=== PATIENT | male | born 1930 | race Caucasian/White ===

== ENCOUNTER → 2016-06-09 | Outpatient (CLI) | payer BC ==
[~2016-06-09] MED LIST: ALBUAER2 INH; ASPCH81 PO; AVD5 PO; AZLCR30 TOP; CHOL100010 PO; LISI-787 PO; MULT-506 PO; PARO1TAB27 PO; SIMV5TAB2 PO
--- NOTE | 2016-06-09 20:50 | DIAGNOSTIC IMAGING REPORT ---
CHEST 2 VIEWS ROUTINE CLINICAL HISTORY: UNSPECIFIED ASTHMA PT TO MAIN LAB NEXT dyspnea COMPARISON STUDY: 12/26/2013 FINDINGS: Subtle interstitial infiltrate left base. Overlap artifact left base as well. Lungs otherwise appear clear. Chronic atelectatic and/or fibrotic change right base. IMPRESSION: Minimal interstitial infiltrate left base. Chronic additional changes as noted. Electronically signed by: Yoni Norman M.D. 06/09/2016 8:49 PM Dictated Date/Time: 06/09/2016 8:48 PM
[2016-06-09 20:57] LABS: HEMATOCRIT 40.9 % (42-52); MEAN CORPUSCULAR HEMOGLOBIN 32.7 pg (25-34); MEAN CORPUSCULAR HGB CONC 35.2 g/dl (32-36); MEAN PLATELET VOLUME 9.4 fL (7.4-10.4); PLATELET COUNT 190 K/uL (130-400); WHITE BLOOD COUNT 8.49 K/uL (4.8-10.8)
[2016-06-09 21:16] LABS: ALT/SGPT 40 U/L (12-78); AST/SGOT 20 U/L (15-37); BLOOD UREA NITROGEN 18 mg/dl (7-18); BUN/CREATININE RATIO 17.8 (10-20); CALCIUM 8.7 mg/dl (8.5-10.1); CARBON DIOXIDE 32 mmol/L (21-32); CHLORIDE 104 mmol/L (98-107); GLUCOSE 88 mg/dl (70-99); POTASSIUM 3.8 mmol/L (3.5-5.1); SODIUM 141 mmol/L (136-145)
[2016-06-09 21:23] LABS: BASO % 0.2 %; BASO ABS # 0.02 K/uL (0-0.2); COMPLETE YES; EOS % 1.6 %; IG% 0.2 %; LYMPH % 23.4 %; LYMPH ABS # 1.99 K/uL (1.2-3.4); MONO % 14.6 %
[2016-06-09 21:27] LABS: ALKALINE PHOSPHATASE 69 U/L (45-117); THYROID STIMULATING HORMONE 0.868 uIu/ml (0.300-4.500)
== END | disposition home or self-care (01) ==
LOC: C.RAD 20:27
PROVIDERS: ATTEND Family Medicine
DX: J45.901 Unspecified asthma with (acute) exacerbation (principal); R53.83 Other fatigue

== ENCOUNTER → 2016-08-31 | Outpatient (CLI) | payer BC ==
[2016-08-31 12:59] LABS: BLOOD UREA NITROGEN 20 mg/dl (7-18); BUN/CREATININE RATIO 23.1 (10-20); CALCIUM 8.8 mg/dl (8.5-10.1); CARBON DIOXIDE 26 mmol/L (21-32); CHLORIDE 109 mmol/L (98-107); CHOLESTEROL 140 mg/dl (0-200); CREATININE 0.85 mg/dl (0.60-1.40); GLUCOSE 85 mg/dl (70-99); POTASSIUM 3.6 mmol/L (3.5-5.1); SODIUM 143 mmol/L (136-145); TRIGLYCERIDES 84 mg/dl (0-150); VERY LOW DENSITY LIPOPROT CALC 17 mg/dl
[2016-08-31 13:09] LABS: CHOLESTEROL/HDL RATIO 2.6; HDL CHOLESTEROL 53 mg/dl; LDL CHOLESTEROL CALCULATED 70 mg/dl
== END | disposition home or self-care (01) ==
LOC: C.LAB 09:55
PROVIDERS: ATTEND Family Medicine
DX: I10 Essential (primary) hypertension (principal); E78.2 Mixed hyperlipidemia; R73.01 Impaired fasting glucose

== ENCOUNTER → 2016-11-12 | Outpatient (CLI) | payer BC ==
[~2016-11-12] MED LIST changes: +OPTIRAY 320 IV PRN
--- NOTE | 2016-11-12 18:29 | DIAGNOSTIC IMAGING REPORT ---
CT ANGIOGRAPHY OF THE CHEST, PULMONARY EMBOLUS PROTOCOL CLINICAL HISTORY: Dyspnea, cough, elevated d-dimer and chest pain. COMPARISON STUDY: Chest CT December 26, 2007 and chest radiograph performed earlier today. TECHNIQUE: Following IV administration of 119 mL of Optiray-320, helical axial images of the chest were obtained utilizing the pulmonary embolus protocol. Maximal intensity projections and sagittal and coronal reformats were viewed on an independent 3D workstation. IV contrast was administered without complication. A dose lowering technique was utilized adhering to the principles of ALARA. CT DOSE: 593.14 mGycm FINDINGS: No pulmonary emboli are identified. The size of the heart is at the upper limits of normal. There is no evidence of thoracic aortic dissection. No pericardial effusion is present. There is a trace left pleural effusion. Note is made of moderate left lower lobe airspace opacity suggestive of pneumonia. Mild subpleural reticulation is noted within the lungs. This may reflect interstitial lung disease. There is no honeycombing. There is no cavitation. A mildly enlarged subcarinal lymph node measures 1.4 cm in short axis diameter. A mildly enlarged left hilar lymph node measures 1.4 cm in short axis diameter. A gallstone is noted within the gallbladder. A cystic 1.5 cm pancreatic tail lesion is similar to exam of December 10, 2014. 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 IMPRESSION: 1. No pulmonary emboli identified. 2. Moderate left lower lobe airspace opacity suggestive of pneumonia. No cavitation. Small left pleural effusion. 3. Mildly enlarged subcarinal and left hilar lymph nodes. These are likely reactive. A follow-up chest CT in 3 months to ensure resolution of the lymphadenopathy and the left lower lobe opacity is recommended. 4. Mild subpleural reticulation without honeycombing. This suggests interstitial lung disease. Electronically signed by: Liu Pete M.D. 11/12/2016 6:28 PM Dictated Date/Time: 11/12/2016 6:15 PM
== END | disposition home or self-care (01) ==
LOC: C.CTS 17:39
PROVIDERS: ATTEND Family Medicine
DX: R06.00 Dyspnea, unspecified (principal); R05 Cough; R79.89 Other specified abnormal findings of blood chemistry; J90 Pleural effusion, not elsewhere classified; R59.0 Localized enlarged lymph nodes

== ENCOUNTER → 2016-11-12 | Outpatient (CLI) | payer BC ==
[~2016-11-12] MED LIST changes: -OPTIRAY 320 IV PRN
--- NOTE | 2016-11-12 14:51 | DIAGNOSTIC IMAGING REPORT ---
CHEST 2 VIEWS ROUTINE HISTORY: 86 years-old Male COUGH acute cough. Initial exam. COMPARISON: Chest radiograph 06/09/2016 and 12/26/2013. TECHNIQUE: PA and lateral views of the chest FINDINGS: Cardiac silhouette is upper limits of normal. There is no pneumothorax. Chronic subsegmental opacity of the right lung base suggest atelectasis or scarring. Patchy alveolar opacities are present within the left lung base. Minimal blunting of the bilateral costophrenic angles may reflect small effusions. The bones are grossly intact. IMPRESSION: 1. Patchy alveolar opacities of the left lung base are suspicious for pneumonia. 2. Blunting of the bilateral costophrenic angles suggests trace effusions. 3. Chronic subsegmental atelectasis/scarring of the right lung base. The above report was generated using voice recognition software. It may contain grammatical, syntax or spelling errors. Electronically signed by: Vel Garcia M.D. 11/12/2016 2:49 PM Dictated Date/Time: 11/12/2016 2:47 PM
== END | disposition home or self-care (01) ==
LOC: C.RAD1850 14:32
PROVIDERS: ATTEND Family Medicine
DX: R05 Cough (principal); R06.00 Dyspnea, unspecified; R79.89 Other specified abnormal findings of blood chemistry; J90 Pleural effusion, not elsewhere classified; R59.0 Localized enlarged lymph nodes

== ENCOUNTER → 2016-12-03 | Outpatient (CLI) | payer BC ==
--- NOTE | 2016-12-03 10:26 | DIAGNOSTIC IMAGING REPORT ---
L VENOUS DOPP LOWER EXT UNILAT CLINICAL HISTORY: 86 years-old Male presenting with L CALF PAIN, R/O DVT *CALL REPORT*. TECHNIQUE: Real-time grayscale and color and spectral Doppler ultrasound imaging of the veins of the left lower extremity was performed. Compression and augmentation were also utilized. COMPARISON: None. FINDINGS: Left: Common femoral vein: Patent. Exaggerated phasicity of spectral Doppler waveforms. Femoral vein: Patent. Exaggerated phasicity spectral Doppler waveforms. Greater saphenous vein: Patent. Popliteal vein: Patent. Exaggerated phasicity of spectral Doppler waveforms Calf veins: Patent. Other: Subcutaneous edema noted in the calf.. IMPRESSION: No evidence of deep venous thrombosis. Exaggerated phasicity of spectral Doppler waveforms could suggest elevated right heart pressures. Electronically signed by: Srikanth Mohamud M.D. 12/03/2016 10:24 AM Dictated Date/Time: 12/03/2016 10:22 AM
== END | disposition home or self-care (01) ==
LOC: C.ULTRBC 09:29
PROVIDERS: ATTEND Family Medicine
DX: M79.662 Pain in left lower leg (principal)

== ENCOUNTER → 2017-02-01 | Outpatient (CLI) | payer BC | END | disposition home or self-care (01) | LOC: C.LAB 15:04 | PROVIDERS: ATTEND Urology | DX: R39.9 Unspecified symptoms and signs involving the genitourinary system (principal) ==

== ENCOUNTER → 2017-05-28 | Outpatient (CLI) | payer BC ==
--- NOTE | 2017-05-28 13:31 | DIAGNOSTIC IMAGING REPORT ---
CHEST 2 VIEWS ROUTINE CLINICAL HISTORY: PNEUMONIA,UNSPECIFIED ORGANISM dyspnea COMPARISON STUDY: 11/12/2016 FINDINGS: Improved aeration compared to the prior study. Mild bibasilar atelectasis. Mild stable cardiomegaly. Mid and upper lungs are entirely clear. IMPRESSION: Mild bibasilar atelectasis. No focal infiltrate. Mild stable cardiomegaly. The above report was generated using voice recognition software. It may contain grammatical, syntax or spelling errors. Electronically signed by: Yoni Norman M.D. 05/28/2017 1:29 PM Dictated Date/Time: 05/28/2017 1:29 PM
== END | disposition home or self-care (01) ==
LOC: C.RAD1850 13:12
PROVIDERS: ATTEND Family Medicine
DX: J18.9 Pneumonia, unspecified organism (principal)